=== PATIENT | male | born 1940 | race Caucasian/White ===

== ENCOUNTER 2023-12-03 19:02 | Emergency (ER) | payer MEDICARE, OTHER ==
[~2023-12-03] VITALS: Ht 182.9 cm; Wt 75.0 kg
[2023-12-03 19:16] VITALS: BP 125/70; PULSE 83; RESP 18; TEMP 98.5; O2SAT 95
[2023-12-03] MEDS ORDERED: TETRACAINE 0.5% OPHTH DROPS 4ML EACHEYE ONE (20:15)
[2023-12-03] MEDS ORDERED: FLUORESCEIN SODIUM 1MG/STRIP EACHEYE ONE (20:15)
== END 2023-12-03 20:51 | disposition left against medical advice (07) ==
LOC: ER 19:02
DX: H57.13 Ocular pain, bilateral (principal); L53.9 Erythematous condition, unspecified; E78.00 Pure hypercholesterolemia, unspecified; Z98.890 Other specified postprocedural states
CPT/HCPCS: 99281